=== PATIENT | female | born 1940 | race Caucasian/White ===

== ENCOUNTER 2016-06-24 09:36 | Observation (INO) ==
[2016-06-24] MEDS ORDERED: Albuterol 2.5 MG/3 ML NEBULIZER IH ONE (09:46)
[2016-06-24] MEDS ORDERED: Ipratropium/Albuterol Neb 3 ML IH ONE (09:46)
--- NOTE | 2016-06-24 09:52 | Emergency Department Note ---
Disposition Clinical Impression: Hypoxemia Pneumonia Qualifiers: Pneumonia type: due to unspecified organism Laterality: right Lung location: unspecified part of lung Qualified Code(s): J18.9 - Pneumonia, unspecified organism Disposition: Admitted As Inpatient Condition: Good Referrals: Owen Johnson DO [Primary Care Provider] - Forms: ED Satisfaction Letter Time of Disposition: 12:10 SOB HPI - General Chief Complaint: ED Upper Respiratory Infection Stated Complaint: cough/low Spo2 in dialysis Time Seen by Provider: 06/24/16 09:45 Source: patient Mode of arrival: EMS Limitations: no limitations Nursing Notes Reviewed: Yes Vital Signs Reviewed: Yes - History of Present Illness 76-year-old white female, chronic renal failure, on dialysis who presents with a cough and difficulty breathing. She was sent from dialysis for shortness of breath. She states she has had a cough for 2 days. Her cough is nonproductive. She states she started feeling short of breath when she was in dialysis this morning. No documented fever. No chest pain. The patient states she did complete dialysis. Pt Subjective Complaint: shortness of breath, cough Onset (ago): day(s) (2) Context: recent illness Severity: moderate Consistency/Duration: constant Improves with: oxygen, rest Worsens with: movement, coughing Known history of: congestive heart failure, other (Chronic renal failure) Associated symptoms: Reports: cough. Denies: chest pain, fever, sputum production, lower extremity pain Treatment prior to arrival: oxygen Cough present: Yes Cough Description: Involuntary Cough Frequency: Intermittent Sputum production: No Sputum Amount: None - Related Data Home oxygen amount: none Home Medications Medication Instructions Recorded Confirmed Acetaminophen [Tylenol] 1,000 mg PO Q6HR PRN 12/20/14 06/24/16 Aspirin Enteric Coated [Aspirin EC] 81 mg PO DAILY 12/20/14 06/24/16 Carvedilol [Coreg] 3.125 mg PO DAILY 12/20/14 06/24/16 FLUoxetine HCl [Prozac] 20 mg PO DAILY 12/20/14 06/24/16 Ferrous Sulfate 325 mg PO DAILY 12/20/14 06/24/16 Multivitamin [Flintstones] 1 each PO DAILY 12/20/14 06/24/16 Omeprazole [PriLOSEC] 20 mg PO BID 12/20/14 06/24/16 Sucralfate [Carafate] 1 gm PO QIDAC 12/20/14 06/24/16 Allergies Allergy/AdvReac Type Severity Reaction Status Date / Time azithromycin Allergy Rash Verified 12/20/14 07:38 cephalexin Allergy Rash Verified 12/20/14 07:38 Erythromycin Base Allergy Rash Verified 12/20/14 07:38 fexofenadine Allergy Rash Verified 12/20/14 07:38 latex Allergy Rash Verified 12/20/14 07:35 loratadine Allergy Rash Verified 12/20/14 07:38 ivp dye Allergy Rash Uncoded 12/20/14 07:38 All systems ED: reviewed and negative except as stated. Constitutional: Denies: fever, chills Eyes: Denies: eye discharge ENT ED: Denies: ear pain, throat pain Cardiovascular: Denies: chest pain, palpitations Respiratory: Reports: cough, dyspnea, wheezes. Denies: sputum production Gastrointestinal: Denies: abdominal pain, nausea, vomiting, diarrhea Neurological: Denies: headache, weakness Past Medical History - Past Medical History Medical history: Reports: arthritis, cardiomyopathy, CHF, diabetes, dialysis, GI bleed, hyperlipidemia, hypertension, peripheral artery disease, RA, renal disease, other Surgical history: Reports: other Psychiatric history: Reports: no psych history - Social History Smoking Status: Former smoker Smokeless Tobacco Status: No Alcohol use: Reports: none Drug use: Reports: none Physical Exam - General Limitations: no limitations General appearance: alert, in no apparent distress - Head Head exam: atraumatic, normocephalic - Eye Eye exam: Present: PERRL, EOMI. Absent: scleral icterus, conjunctival injection - ENT ENT exam: normal oropharynx, mucous membranes moist, TM's normal bilaterally - Neck Neck exam: Present: normal inspection, full ROM, trachea midline. Absent: lymphadenopathy - Respiratory Respiratory exam: Present: wheezes (Moderate, bilateral, expiratory.), other ( Decreased breath sounds in the bases to mid lung field with basilar rales. No rhonchi.). Absent: accessory muscle use, prolonged expiratory phase - Cardiovascular Cardiovascular exam: Present: regular rate, normal rhythm, normal heart sounds - Abdominal Exam Abdominal exam: Present: soft, Non-Tender - Extremities Exam Extremities exam: Present: other (Left [id number] amputation. No edema or calf tenderness in the right lower extremity.) - Neurological Exam Neurological exam: Present: alert, oriented X3. Absent: motor sensory deficit - Psychiatric Psychiatric exam: Present: normal affect, normal mood - Skin Skin exam: Present: warm, dry, intact, normal color. Absent: cyanosis, diaphoresis Course - Reevaluation(s) Reevaluation #1: Clinically she feels much better. On repeat exam her wheezing is decreased, some mild wheezing remained bilaterally. Her chest x-ray shows some atelectasis in the right base and perihilar area which could represent early pneumonia. I am going to stop her oxygen and reassessed her on room air. She is 97% on 2 L. Her oxygen levels are adequate we will treat her at home if possible. Her preference is to go home today. Time: 11:25 Reevaluation #2: Her O2 saturations were dropping back down to 87-88% on room air. I put her back on 2 L of oxygen. I discussed with her admission. She is agreeable. Time: 11:31 Reevaluation #3: Discussed with Dr. Ledezma. He accepts the patient for admission. Time: 12:00 Vital Signs Temperature 99.5 F 06/24/16 09:39 Pulse Rate 115 06/24/16 09:39 Respiratory Rate 105 06/24/16 09:39 Blood Pressure 136/68 06/24/16 09:39 O2 Sat by Pulse Oximetry 88 L 06/24/16 09:39 Temperature 99.5 F 06/24/16 09:42 Pulse Rate 90 06/24/16 12:05 Respiratory Rate 20 06/24/16 12:05 Blood Pressure 123/78 06/24/16 12:05 O2 Sat by Pulse Oximetry 94 L 06/24/16 12:05 Oxygen Delivery Oxygen Delivery Nasal Cannula Shortness of Breath/Dyspnea - MDM Narrative Medical decision making narrative: Differential includes but is not limited to influenza, pneumonia, bronchitis with bronchospasm, congestive heart failure, pulmonary embolus, pleural effusion , pneumothorax. The patient has a significant cough with bronchospasm. She has some atelectasis in the right perihilar and right lower lobe area which is likely pneumonia. Cultures are been obtained. Her lactic acid is not elevated, I have a low index of suspicion for sepsis. Levaquin was initiated. She is improved some with the nebulizers and Solu-Medrol. She will be admitted. We will continue him, nebulizer treatment, and Solu-Medrol. - Lab Data Lab results reviewed: Yes I reviewed the patient's lab results. Result diagrams: 06/24/16 10:20 06/24/16 10:20 Lab Results 06/24/16 06/24/16 06/24/16 Range/Units 10:20 10:20 10:20 WBC 7.3 (4.3-11.1) K/mcL RBC 3.19 L (3.82-4.97) M/mcL Hgb 9.4 L (11.5-15.4) g/dL Hct 30.1 L (35.3-44.9) % MCV 94.4 (83.0-100.0) fL MCH 29.5 (28.0-33.3) pg MCHC 31.2 L (31.6-35.5) g/dL RDW 14.8 H (11.5-14.5) % Plt Count 168 (140-400) K/mcL MPV 10.1 (9.4-12.4) fL Immature Gran % 0.7 (0-4) % Seg Neutrophils % 45.5 % Lymphocytes % 24.0 % Monocytes % 9.0 % Eosinophils % 20.7 % Basophils % 0.1 % Neutrophils # 3.3 (1.6-8.9) K/mcL Lymphocytes # 1.8 (0.6-4.6) K/mcL Monocytes # 0.7 (0.0-1.3) K/mcL Eosinophils # 1.5 H (0.0-0.6) K/mcL Basophils # 0.0 (0.0-0.2) K/mcL VBG Lactic Acid (0.5-2.2) mmol/L Sodium 142 (136-145) mEq/L Potassium 3.6 (3.5-4.5) mEq/L Chloride 98 (98-109) mEq/L Carbon Dioxide 34 H (19-29) mEq/L BUN 7 (7-20) mg/dL Creatinine 1.79 H (0.57-1.11) mg/dL Est GFR ( Amer) 33 L (> 60) Est GFR (Non-Af Amer) 28 L (> 60) BUN/Creatinine Ratio 4 L (6-26) Glucose 90 (70-99) mg/dL Calculated Osmolality 292 (280-300) Calcium 9.2 (8.6-10.8) mg/dL Total Bilirubin 1.2 (0.2-1.2) mg/dL AST 9 (5-34) Units/L ALT < 6 (0-55) Units/L Alkaline Phosphatase 47 (38-126) Units/L Troponin I 0.02 (0-0.03) ng/mL Serum Total Protein 6.7 (6.0-8.3) g/dL Albumin 2.7 L (3.5-5.0) g/dL Globulin 4.0 H (2.4-3.5) g/dL Albumin/Globulin Ratio 0.7 L (1.1-2.2) 06/24/16 Range/Units 10:20 WBC (4.3-11.1) K/mcL RBC (3.82-4.97) M/mcL Hgb (11.5-15.4) g/dL Hct (35.3-44.9) % MCV (83.0-100.0) fL MCH (28.0-33.3) pg MCHC (31.6-35.5) g/dL RDW (11.5-14.5) % Plt Count (140-400) K/mcL MPV (9.4-12.4) fL Immature Gran % (0-4) % Seg Neutrophils % % Lymphocytes % % Monocytes % % Eosinophils % % Basophils % % Neutrophils # (1.6-8.9) K/mcL Lymphocytes # (0.6-4.6) K/mcL Monocytes # (0.0-1.3) K/mcL Eosinophils # (0.0-0.6) K/mcL Basophils # (0.0-0.2) K/mcL VBG Lactic Acid 1.2 (0.5-2.2) mmol/L Sodium (136-145) mEq/L Potassium (3.5-4.5) mEq/L Chloride (98-109) mEq/L Carbon Dioxide (19-29) mEq/L BUN (7-20) mg/dL Creatinine (0.57-1.11) mg/dL Est GFR ( Amer) (> 60) Est GFR (Non-Af Amer) (> 60) BUN/Creatinine Ratio (6-26) Glucose (70-99) mg/dL Calculated Osmolality (280-300) Calcium (8.6-10.8) mg/dL Total Bilirubin (0.2-1.2) mg/dL AST (5-34) Units/L ALT (0-55) Units/L Alkaline Phosphatase (38-126) Units/L Troponin I (0-0.03) ng/mL Serum Total Protein (6.0-8.3) g/dL Albumin (3.5-5.0) g/dL Globulin (2.4-3.5) g/dL Albumin/Globulin Ratio (1.1-2.2) - Radiology Data Radiology results reviewed: Yes I reviewed the patient's radiology results. ITS Impressions Chest X-Ray 06/24/16 09:46 IMPRESSION: Cardiomegaly with probable pulmonary venous hypertension. No edema. Right perihilar and right basilar atelectasis D/ / Pablo Kim MD / Pablo Kim MD Interpreting Provider: Pablo Kim MD - EKG Data EKG attestation: Yes I reviewed and interpreted this EKG. EKG results narrative: Sinus rhythm, sinus arrhythmia, rate of 96, left axis deviation with left bundle -branch block. Rhythm strip shows a sinus rhythm with rate of 96, a [place] interval of 128 ms, QRS 158 ms with an isolated PVC, no other ectopy as interpreted by me. This tracing is unchanged compared to a tracing dated .
[2016-06-24 10:55] LABS: Alanine Aminotransferase < 6 Units/L (0-55); Albumin 2.7 g/dL (3.5-5.0); Albumin/Globulin Ratio 0.7 (1.1-2.2); Alkaline Phosphatase 47 Units/L (38-126); Aspartate Amino Transferase 9 Units/L (5-34); BUN/Creatinine Ratio 4 (6-26); Bilirubin,Total 1.2 mg/dL (0.2-1.2); Blood Urea Nitrogen 7 mg/dL (7-20); Calcium 9.2 mg/dL (8.6-10.8); Carbon Dioxide 34 mEq/L (19-29); Chloride 98 mEq/L (98-109); Glucose 90 mg/dL (70-99); Osmolality,Calculated 292 (280-300); Potassium 3.6 mEq/L (3.5-4.5); Sodium 142 mEq/L (136-145); Total Protein 6.7 g/dL (6.0-8.3); eGFR For African Americans 33 (> 60); eGFR For Non-African Americans 28 (> 60)
[2016-06-24 10:58] LABS: Basophils % 0.1 %; Eosinophils # 1.5 K/mcL (0.0-0.6); Eosinophils % 20.7 %; Hematocrit 30.1 % (35.3-44.9); Hemoglobin 9.4 g/dL (11.5-15.4); Immature Granulocytes % 0.7 % (0-4); Lymphocytes # 1.8 K/mcL (0.6-4.6); Mean Corpuscular HGB Conc 31.2 g/dL (31.6-35.5); Mean Corpuscular Hemoglobin 29.5 pg (28.0-33.3); Mean Corpuscular Volume 94.4 fL (83.0-100.0); Mean Platelet Volume 10.1 fL (9.4-12.4); Monocytes # 0.7 K/mcL (0.0-1.3); Neutrophils # 3.3 K/mcL (1.6-8.9); Platelet Count 168 K/mcL (140-400); Red Blood Count 3.19 M/mcL (3.82-4.97); Red Cell Distribution Width 14.8 % (11.5-14.5); Segmented Neutrophils % 45.5 %
[2016-06-24] MEDS ORDERED: Levofloxacin 500 MG/100 ML 500 MG/100 ML BAG IVPB ONE (12:05)
[2016-06-24] MEDS ORDERED: Naloxone 0.4 MG/ML INJ IVP PRN (14:28)
[2016-06-24] MEDS ORDERED: Ipratropium/Albuterol Neb 3 ML IH SCH (14:28)
[2016-06-24] MEDS ORDERED: Levofloxacin 500 MG/100 ML 500 MG/100 ML BAG IVPB SCH (14:28)
[2016-06-24] MEDS ORDERED: MethylPREDNISolone 40 MG/ML VIAL IVP SCH (14:28)
--- NOTE | 2016-06-24 15:46 | Internal Med History&Physical ---
Date of Encounter: 06/24/16 Time of Encounter: 15:25 Assessment and Plan (1) Hypoxemia Current visit: Yes Status: Acute She has been started empirically on Levaquin and Solu-Medrol. I will discontinue the Solu-Medrol since she has no evidence of bronchospasm. Follow up labs be done in a.m. Internal Medicine - H&P: HPI Chief complaint: Dyspnea and hypoxemia Admitted From: Home Plans for Post Hospital Care: Home History of present illness: Ms. Fan is a 76 year old female who came to the emergency room after finishing dialysis today with complaints of slight cough with dyspnea. She states the cough started 2 days previously and was nonproductive. She was found to have hypoxemia in emergency room. Chest x-ray showed no obvious infiltrate with possible right basilar atelectasis. [facility] for ongoing care needs Her respiratory history significant for being a lifelong nonsmoker. She does not have documented chronic lung disease. Past Med Surg Social Fam HX - Past Medical History Medical history: arthritis, cardiomyopathy, CHF, diabetes, dialysis, hyperlipidemia, hypertension, peripheral artery disease, RA, renal disease, other Psychiatric history: depression - Past Surgical History Surgical History: cataract, orthopedic, other, other - Social History Smoking Status: Never smoker Smokeless Tobacco Status: No Alcohol use: none Drug use: none - Family History Father History Unknown: Yes Living Status: Cause of : tuberculosis Hx Family Cardiac Disorders: Yes Hx Family Endocrine Disorder: Yes Mother History Unknown: Yes Adopted: No Living Status: Cause of : kidney/heart Hx Family Cardiac Disorders: Yes Hx Family Endocrine Disorder: Yes Internal Medicine - H&P: Meds Acetaminophen [Tylenol] 1,000 mg PO Q6HR PRN 12/20/14 [History] Aspirin Enteric Coated [Aspirin EC] 81 mg PO DAILY 12/20/14 [History] Carvedilol [Coreg] 3.125 mg PO DAILY 12/20/14 [History] FLUoxetine HCl [Prozac] 20 mg PO DAILY 12/20/14 [History] Ferrous Sulfate 325 mg PO DAILY 12/20/14 [History] Multivitamin [Flintstones] 1 each PO DAILY 12/20/14 [History] Omeprazole [PriLOSEC] 20 mg PO BID 12/20/14 [History] Sucralfate [Carafate] 1 gm PO QIDAC 12/20/14 [History] Allergies azithromycin Allergy (Verified 12/20/14 07:38) Rash cephalexin Allergy (Verified 12/20/14 07:38) Rash Erythromycin Base Allergy (Verified 12/20/14 07:38) Rash fexofenadine Allergy (Verified 12/20/14 07:38) Rash latex Allergy (Verified 12/20/14 07:35) Rash loratadine Allergy (Verified 12/20/14 07:38) Rash ivp dye Allergy (Uncoded 12/20/14 07:38) Rash All Systems PM: A 10-system review of systems was performed and is negative for pertinent findings except as documented above in the HPI. Review of systems: Gen.: Her weight has been stable the past year Cardiovascular: She has a history of hypertension but no known VT heart failure angina DVT or pulmonary embolus. Respiratory: As per history of present illness GI: She denies disorders of her liver gallbladder or exocrine pancreas : She denies hematuria dysuria or kidney stones. She does have CKD stage V and is been on hemodialysis for approximately 2 years. She does not know the diagnosis causing the renal failure Neurologic: She denies large distribution strokes or seizures Endocrine: She has been diagnosed with DM 2 but states it is diet controlled. Her most recent hemoglobin A1c was 4.9% on 01/15/2015 in [place] archived records Hematology/oncology: She denies blood disorders or cancers. She does have a diagnosis of anemia with workup done 2014 showing no factor deficiency. Psychiatric: She denies anxiety depression or other mental health issues Musk skeletal: She has rheumatoid arthritis but denies gout or other bone joint or muscle disorders. 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 - Constitutional Vitals: Temp Pulse Resp BP Pulse Ox 99.0 F 95 16 103/67 94 L 06/24/16 13:10 06/24/16 13:10 06/24/16 14:48 06/24/16 13:10 06/24/16 15:21 Exam: Gen.: She is a well-developed overweight female lying in bed who appears in no acute distress HEENT: Head is atraumatic and normocephalic. Eyes: EOMI. There is no scleral icterus. Mouth: Mucosa is moist. Neck: Supple and nontender. There is no thyromegaly or adenopathy noted. Heart: Regular without murmurs gallops or ectopics. Lungs: No wheezes crackles or egophony is heard Abdomen: Soft and nontender. No masses or guarding noted. Extremities: She has a left AKA. The right leg shows no cyanosis edema or clubbing noted. Dorsalis pedis and posttibial pulses are trace palpable bilaterally. Right foot is warm to touch Neurologic: Mental status: She is talkative and a good historian. Cranial nerves: Smile is symmetric. Forehead wrinkles bilaterally. Tongue protrudes midline. EOMI. Motor: There is no pronator drift. Cerebellar: Finger to nose is intact bilaterally. Skin: Warm and dry Internal Med - H&P Results - Labs CBC & Chem 7: 06/24/16 10:20 06/24/16 10:20
[2016-06-24] MEDS ORDERED: Albuterol 2.5 MG/3 ML NEBULIZER IH PRN (15:54)
[2016-06-24] MEDS: Sucralfate 1 GM TABLET PO SCH ×2 (17:15→21:04)
[2016-06-25 06:19] LABS: Hematocrit 27.8 % (35.3-44.9); Hemoglobin 8.6 g/dL (11.5-15.4); Immature Granulocytes % 0.5 % (0-4); Lymphocytes # 0.9 K/mcL (0.6-4.6); Lymphocytes % 12.2 %; Mean Corpuscular HGB Conc 30.9 g/dL (31.6-35.5); Mean Corpuscular Hemoglobin 29.6 pg (28.0-33.3); Mean Corpuscular Volume 95.5 fL (83.0-100.0); Monocytes # 0.4 K/mcL (0.0-1.3); Monocytes % 5.4 %; Neutrophils # 6.1 K/mcL (1.6-8.9); Platelet Count 176 K/mcL (140-400); Red Blood Count 2.91 M/mcL (3.82-4.97); Red Cell Distribution Width 14.8 % (11.5-14.5); Segmented Neutrophils % 81.9 %
[2016-06-25] MEDS: Sucralfate 1 GM TABLET PO SCH (06:27)
[2016-06-25 06:39] LABS: Magnesium 2.1 mg/dL (1.6-2.6); Uric Acid 4.3 mg/dL (2.6-6.0)
[2016-06-25] MEDS ORDERED: *HR* Enoxaparin 30 MG/0.3 ML SYRINGE SQ SCH (07:00)
[2016-06-25] MEDS ORDERED: Multivit/Ca/Min/Fe/FA 1 TAB TABLET PO SCH (09:00)
[2016-06-25] MEDS ORDERED: Aspirin Enteric Coated 81 MG Tablet PO SCH (09:00)
[2016-06-25] MEDS ORDERED: FLUoxetine 20 MG CAPSULE PO SCH (09:00)
--- NOTE | 2016-06-25 10:22 | Discharge Summary ---
Date of Encounter: 06/25/16 Time of Encounter: 10:10 - Discharge Diagnosis (1) Hypoxemia Priority: Primary Status: Acute - Discharge Medications Home Medications: Acetaminophen [Tylenol] 1,000 mg PO Q6HR PRN 12/20/14 [History] Aspirin Enteric Coated [Aspirin EC] 81 mg PO DAILY 12/20/14 [History] Carvedilol [Coreg] 3.125 mg PO DAILY 12/20/14 [History] FLUoxetine HCl [Prozac] 20 mg PO DAILY 12/20/14 [History] Ferrous Sulfate 325 mg PO DAILY 12/20/14 [History] Multivitamin [Flintstones] 1 each PO DAILY 12/20/14 [History] Omeprazole [PriLOSEC] 20 mg PO BID 12/20/14 [History] Sucralfate [Carafate] 1 gm PO QIDAC 12/20/14 [History] Allergies/Adverse Reactions: Allergies azithromycin Allergy (Verified 12/20/14 07:38) Rash cephalexin Allergy (Verified 12/20/14 07:38) Rash Erythromycin Base Allergy (Verified 12/20/14 07:38) Rash fexofenadine Allergy (Verified 12/20/14 07:38) Rash latex Allergy (Verified 12/20/14 07:35) Rash loratadine Allergy (Verified 12/20/14 07:38) Rash ivp dye Allergy (Uncoded 12/20/14 07:38) Rash Date of admission: 06/24/16 12:49 Primary care physician: Owen Johnson DO - Patient Status Disposition: Home, Self-Care Condition: Good Functional capacity at discharge: wheelchair bound Overall status at discharge: patient is progressing back to baseline - Discharge Instructions Follow Up With: Owen Johnson DO [Primary Care Provider] - 1 week - Diet and Activity Activity: resume usual activities as tolerated Diet: advance to your usual diet Hospital course: Ms. Fan is a 76 year old female who came to the emergency room after finishing dialysis today with complaints of slight cough with dyspnea. She states the cough started 2 days previously and was nonproductive. She was found to have hypoxemia in emergency room. Chest x-ray showed no obvious infiltrate with possible right basilar atelectasis. She was admitted to [facility] floor for ongoing care needs. Initial orders were written by the emergency room physician. I saw her on June 24 and performed a history and physical. She was started on Levaquin by the emergency room physician. I felt she likely had a viral infection and will not continue antibiotics at discharge. Her maximum temperature was 99.5 which was on admission. I felt she would continue to improve over the next few days. Room air oximetry will be checked prior to discharge. When I saw her on June 25 she felt stable for discharge home. She will follow with Dr. Owen Johnson within 1 week. - Time Spent with Patient Total time spent providing and/or coordinating discharge services: - Constitutional Vitals: Temp Pulse Resp BP Pulse Ox 99.0 F 85 16 121/66 92 L 06/25/16 07:36 06/25/16 07:36 06/25/16 08:58 06/25/16 07:36 06/25/16 08:58
[2016-06-25 11:46] VITALS: BP 106/57
[2016-06-25] MEDS ORDERED: Levofloxacin 750 MG/150 ML 750 MG/150 ML BAG IVPB SCH (12:00)
== END 2016-06-25 12:20 | disposition home or self-care (01) ==
LOC: EMEROOPIK 09:36 → INPPIK 09:36
PROVIDERS: ADMIT Internal Medicine; ATTEND Internal Medicine